=== PATIENT | female | born 1945 | race Two or more races ===

== ENCOUNTER 2021-10-19 19:35 | Inpatient (IN) | payer OTHER, MEDICAID ==
[~2021-10-19] VITALS: Ht 154.9 cm; Wt 64.3 kg
[2021-10-20] MEDS ORDERED: HYDROcodone-ACET 10/325MG TAB PO ONE (01:30)
[2021-10-20 02:22] LABS: Basophils # (auto) 0.1 10 ^3/uL (0-0.2); Basophils % (auto) 0.8 % (0.0-2.0); Eosinophils # (auto) 0.1 10 ^3/uL (0-0.8); Hematocrit 38.5 % (36.0-46.0); Hemoglobin 12.6 g/dL (12.2-16.2); Lymphocytes # (auto) 1.5 10 ^3/uL (0.4-5.4); Mean Corpuscular Hemoglobin 32.1 pg (28.0-32.0); Mean Corpuscular Hgb Conc. 32.7 g/dL (32.0-36.0); Mean Corpuscular Volume 98.3 fL (80.0-100.0); Monocytes # (auto) 0.7 10 ^3/uL (0-1.3); Monocytes % (auto) 7.5 % (0.0-12.0); Neutrophils # (auto) 6.8 10 ^3/uL (1.6-8.6); Neutrophils % (auto) 74.7 % (37.0-80.0); Red Blood Cells 3.92 10^6/uL (4.0-5.20); Red Cell Distribution Width 14.5 % (11.8-14.3); White Blood Cell 9.1 10^3/uL (4.4-10.8)
[2021-10-20 02:37] LABS: INR 1.35 (0.9-1.15); Partial Thromboplastin Time 43.1 sec (23.6-33.0)
[2021-10-20 03:35] LABS: Alanine Aminotransferase 35 U/L (13-56); Albumin 2.7 g/dL (3.4-5.0); Anion Gap 13 (5-15); Aspartate Aminotransferase 25 U/L (15-37); BUN/Creatinine Ratio 31.6; Blood Urea Nitrogen 18 mg/dL (7-18); Calcium 7.8 mg/dL (8.5-10.1); Carbon Dioxide 21 mmol/L (21-32); Chloride 108 mmol/L (98-107); GFR African American 134 mL/min; GFR Non-African American 111 mL/min; Glucose 127 mg/dL (74-106); Potassium 4.6 mmol/L (3.5-5.1); Sodium 142 mmol/L (136-145)
[2021-10-20 03:37] LABS: Alkaline Phosphatase 112 U/L (45-117); Bilirubin, Total 0.5 mg/dL (0.2-1.0)
[2021-10-20] MEDS ORDERED: ACETAMINOPHEN 325 MG TAB PO PRN (05:00)
[2021-10-20] MEDS ORDERED: DOCUSATE SOD 100 MG CAP PO PRN (05:00)
[2021-10-20] MEDS ORDERED: ONDANSETRON HCL 4 MG/2 ML VIAL IV PRN (05:00)
[2021-10-20] MEDS ORDERED: NITROGLYCERIN 0.4 MG SL TAB SL PRN (05:15)
[2021-10-20] MEDS ORDERED: MORPHINE SULFATE INJECTION 2 MG/ML SYRG IV PRN (05:15)
[2021-10-20] MEDS ORDERED: ALPRAZolam 0.25 MG TAB PO ONE (05:15)
[2021-10-20] MEDS: MORPHINE SULFATE 4 MG/ML SYR/VIAL IV PRN ×2 (06:36→12:25)
[2021-10-20 08:52] LABS: Basophils # (auto) 0.1 10 ^3/uL (0-0.2); Basophils % (auto) 0.8 % (0.0-2.0); Eosinophils # (auto) 0.1 10 ^3/uL (0-0.8); Eosinophils % (auto) 1.5 % (0.0-7.0); Hematocrit 38.7 % (36.0-46.0); Hemoglobin 12.8 g/dL (12.2-16.2); Lymphocytes # (auto) 1.5 10 ^3/uL (0.4-5.4); Lymphocytes % (auto) 18.2 % (10.0-50.0); Mean Corpuscular Hemoglobin 31.9 pg (28.0-32.0); Mean Corpuscular Hgb Conc. 33.1 g/dL (32.0-36.0); Mean Corpuscular Volume 96.5 fL (80.0-100.0); Monocytes # (auto) 0.6 10 ^3/uL (0-1.3); Monocytes % (auto) 7.5 % (0.0-12.0); Red Blood Cells 4.02 10^6/uL (4.0-5.20); Red Cell Distribution Width 14.6 % (11.8-14.3); White Blood Cell 8.3 10^3/uL (4.4-10.8)
[2021-10-20] MEDS: HYDROcodone-ACET 5/325MG TAB PO PRN ×3 (09:02→22:08)
[2021-10-20 09:15] LABS: Albumin 2.7 g/dL (3.4-5.0); Calcium 7.9 mg/dL (8.5-10.1); Potassium 4.4 mmol/L (3.5-5.1)
[2021-10-20 09:18] LABS: BUN/Creatinine Ratio 29.4; Bilirubin, Total 0.5 mg/dL (0.2-1.0); Total Protein 6.1 g/dL (6.4-8.2)
[2021-10-20] MEDS: MULTIPLE VITAMIN TAB PO SCH (10:00)
[2021-10-20] MEDS: ASCORBIC ACID 500 MG TAB PO SCH ×2 (10:00→22:08)
[2021-10-20] MEDS: ZINC SULFATE 220mg CAP or TAB PO SCH (10:00)
[2021-10-20] MEDS: ENOXAPARIN SOD 40 MG/0.4 ML SYRINGE SC SCH (10:00)
[2021-10-20] MEDS: FAMOTIDINE (10MG/ML) 2ML VL IV SCH (10:00)
[2021-10-20 15:29] VITALS: BP 128/68
[2021-10-20 16:55] VITALS: BP 154/74
[2021-10-20] MEDS ORDERED: LIOT1POW PO (17:29)
[2021-10-20] MEDS ORDERED: FERR325T20 PO (17:29)
[2021-10-20] MEDS ORDERED: ASCO500T11 PO (17:29)
[2021-10-20] MEDS ORDERED: POTA10TA51 PO (17:29)
[2021-10-20] MEDS ORDERED: FURO1TAB33 PO (17:29)
[2021-10-20] MEDS ORDERED: HYDR-4833 PO (17:29)
[2021-10-20] MEDS ORDERED: METO-289 PO ×2 (17:29)
[2021-10-20] MEDS ORDERED: RIVA20TA PO (17:29)
[2021-10-20] MEDS ORDERED: GABA100C9 PO (17:29)
[2021-10-20] MEDS ORDERED: LEVO-28 PO (17:29)
[2021-10-20] MEDS ORDERED: ZINC100T5 PO (17:29)
[2021-10-20] MEDS ORDERED: LEVO112T4 PO (17:29)
[2021-10-20] MEDS ORDERED: AMIO200T33 PO (17:29)
[2021-10-20] MEDS ORDERED: CALC0.25 PO (17:29)
[2021-10-20] MEDS ORDERED: MAGN400T40 PO (17:29)
[2021-10-20] MEDS ORDERED: PANT40TA2 PO (17:29)
[2021-10-20 22:25] VITALS: BP 120/72
[2021-10-21] MEDS: HYDROcodone-ACET 5/325MG TAB PO PRN ×3 (01:45→13:41)
[2021-10-21 05:00] VITALS: BP 126/70
[2021-10-21 06:17] LABS: Basophils # (auto) 0.1 10 ^3/uL (0-0.2); Basophils % (auto) 1.2 % (0.0-2.0); Eosinophils # (auto) 0.2 10 ^3/uL (0-0.8); Eosinophils % (auto) 2.3 % (0.0-7.0); Hematocrit 38.8 % (36.0-46.0); Hemoglobin 13.1 g/dL (12.2-16.2); Lymphocytes # (auto) 1.3 10 ^3/uL (0.4-5.4); Lymphocytes % (auto) 19.9 % (10.0-50.0); Mean Corpuscular Hgb Conc. 33.9 g/dL (32.0-36.0); Mean Corpuscular Volume 94.4 fL (80.0-100.0); Monocytes # (auto) 0.5 10 ^3/uL (0-1.3); Monocytes % (auto) 7.6 % (0.0-12.0); Neutrophils # (auto) 4.6 10 ^3/uL (1.6-8.6); Nucleated Red Blood Cells % 0.1 %; Red Blood Cells 4.11 10^6/uL (4.0-5.20); Red Cell Distribution Width 14.4 % (11.8-14.3); White Blood Cell 6.6 10^3/uL (4.4-10.8)
[2021-10-21 06:38] LABS: Albumin 2.6 g/dL (3.4-5.0); Calcium 7.9 mg/dL (8.5-10.1); Potassium 4.1 mmol/L (3.5-5.1)
[2021-10-21 06:41] LABS: BUN/Creatinine Ratio 23.5; Bilirubin, Total 0.5 mg/dL (0.2-1.0); Total Protein 5.9 g/dL (6.4-8.2)
[2021-10-21 09:00] VITALS: BP 134/67
[2021-10-21] MEDS: FAMOTIDINE (10MG/ML) 2ML VL IV SCH (09:57)
[2021-10-21] MEDS: MORPHINE SULFATE 4 MG/ML SYR/VIAL IV PRN ×3 (09:57→21:06)
[2021-10-21] MEDS: ENOXAPARIN SOD 40 MG/0.4 ML SYRINGE SC SCH (09:58)
[2021-10-21] MEDS: MULTIPLE VITAMIN TAB PO SCH (09:58)
[2021-10-21] MEDS: ZINC SULFATE 220mg CAP or TAB PO SCH (09:58)
[2021-10-21] MEDS: ASCORBIC ACID 500 MG TAB PO SCH ×2 (09:58→20:48)
[2021-10-21 10:17] LABS: Albumin 2.6 g/dL (3.4-5.0); Bilirubin, Direct 0.2 mg/dL (0-0.2)
[2021-10-21 10:21] LABS: Bilirubin, Total 0.4 mg/dL (0.2-1.0); Total Protein 6.5 g/dL (6.4-8.2)
[2021-10-21 12:36] VITALS: BP 104/71
[2021-10-21 16:58] VITALS: BP 117/70
[2021-10-21 22:00] VITALS: BP 123/80
[2021-10-22] MEDS: HYDROcodone-ACET 5/325MG TAB PO PRN ×3 (01:50→21:36)
[2021-10-22 05:00] VITALS: BP 122/67
[2021-10-22] MEDS: MORPHINE SULFATE 4 MG/ML SYR/VIAL IV PRN ×2 (08:41→14:56)
[2021-10-22 09:00] VITALS: BP 138/89
[2021-10-22] MEDS: ASCORBIC ACID 500 MG TAB PO SCH ×2 (10:14→21:36)
[2021-10-22] MEDS: ZINC SULFATE 220mg CAP or TAB PO SCH (10:14)
[2021-10-22] MEDS: FAMOTIDINE (10MG/ML) 2ML VL IV SCH (10:14)
[2021-10-22] MEDS: MULTIPLE VITAMIN TAB PO SCH (10:14)
[2021-10-22] MEDS: ENOXAPARIN SOD 40 MG/0.4 ML SYRINGE SC SCH (10:15)
[2021-10-22 15:06] VITALS: BP 119/69
[2021-10-22 17:00] VITALS: BP 115/70
[2021-10-22 22:00] VITALS: BP 111/75
[2021-10-23] MEDS: MORPHINE SULFATE 4 MG/ML SYR/VIAL IV PRN ×2 (01:58→10:40)
[2021-10-23 05:00] VITALS: BP 103/69
[2021-10-23 06:18] LABS: Albumin 2.4 g/dL (3.4-5.0); Bilirubin, Direct 0.1 mg/dL (0-0.2)
[2021-10-23 06:22] LABS: Bilirubin, Total 0.3 mg/dL (0.2-1.0); Total Protein 6.4 g/dL (6.4-8.2)
[2021-10-23 09:00] VITALS: BP 121/54
[2021-10-23] MEDS: MULTIPLE VITAMIN TAB PO SCH (10:39)
[2021-10-23] MEDS: ZINC SULFATE 220mg CAP or TAB PO SCH (10:39)
[2021-10-23] MEDS: ENOXAPARIN SOD 40 MG/0.4 ML SYRINGE SC SCH (10:39)
[2021-10-23] MEDS: ASCORBIC ACID 500 MG TAB PO SCH (10:39)
[2021-10-23] MEDS: FAMOTIDINE (10MG/ML) 2ML VL IV SCH (10:39)
[2021-10-23 13:00] VITALS: BP 132/81
[2021-10-23] MEDS: HYDROcodone-ACET 5/325MG TAB PO PRN (16:51)
[2021-10-23 17:16] VITALS: BP 139/78
== END 2021-10-23 20:49 | DRG 562 ==
LOC: ER 19:35 → EDBD 19:35 → OVERFLOW 10-20 05:10 → CENTRAL 10-20 15:26
PROVIDERS: ADMIT Nurse Practitioner Family; ATTEND Internal Medicine Geriatric Medicine
DX: S82.035A Nondisplaced transverse fracture of left patella, initial encounter for closed fracture (principal); E43 Unspecified severe protein-calorie malnutrition; L03.115 Cellulitis of right lower limb; E78.5 Hyperlipidemia, unspecified; I10 Essential (primary) hypertension; Z20.822 Contact with and (suspected) exposure to COVID-19; E03.9 Hypothyroidism, unspecified; W01.0XXA Fall on same level from slipping, tripping and stumbling without subsequent striking against object, initial encounter; Z79.01 Long term (current) use of anticoagulants; Z85.3 Personal history of malignant neoplasm of breast; Y93.89 Activity, other specified; Y92.098 Other place in other non-institutional residence as the place of occurrence of the external cause; Y99.8 Other external cause status; E88.09 Other disorders of plasma-protein metabolism, not elsewhere classified; M85.872 Other specified disorders of bone density and structure, left ankle and foot; Y92.009 Unspecified place in unspecified non-institutional (private) residence as the place of occurrence of the external cause
CPT/HCPCS: 36415; 71045; 73562; 73590; 73610; 73630; 73700; 80053; 80076; 83036; 85025; 85610; 85730; 87426; 97110; 97116; 97163; 97530; G0378; J3490